=== PATIENT | male | born 1985 | race Caucasian/White ===

== ENCOUNTER 2023-05-17 14:22 | Emergency (ER) | payer MEDICAID, SELFPAY ==
[2023-05-17] VITALS (11 sets, daily range): BP systolic 113–138; BP diastolic 64–91; PULSE 78–89; RESP 14–16; TEMP 36.4–36.7; O2SAT 98; BMI 20.7
--- NOTE | 2023-05-17 15:01 | ED.RN ---
Patient brought in by for suicidal ideation. Patient states increased depression and life stressors, denies suicidal ideation at this time. Mother in hospital in [place] and is at end of life.
[2023-05-17 15:10] LABS: Bacteria 0 SEEN /hpf (None Seen); Mucous, Urine 0 SEEN /hpf (<or=2+); Red Blood Cells-Urine 0 SEEN /hpf (0-5); Squamous Epithelial Cells - UA 0 SEEN /hpf (0-5)
[2023-05-17 15:16] LABS: Color, Urine Yellow (Yellow); Glucose, Dipstick Normal (Normal); Ketone-Dipstick 5 mg/dl (Negative); Leukocyte Esterase-Dipstick 25 /ul (Negative); Nitrite-Dipstick Negative (Negative); Occult Blood-Urine Negative /ul (Negative); Protein-Dipstick 100 mg/dl (Negative); Specific Gravity, Urine 1.015 (1.002-1.030); Urine Bilirubin Dipstick Negative (Negative); Urine Clarity Clear (Clear); Urine Urobilinogen Normal (Normal); Urine pH 6.5 (5.0 - 8.0)
[2023-05-17 15:22] LABS: Absolute Lymphocyte Count 1.53 X10^3/uL (0.83-4.51); Absolute Neutrophil Count 14.9 X10^3/uL (2.0-7.7); Basophil# 0.08 X10^3/uL; Basophil% 0.5 % (0-1); Eosinophil# 0.12 X10^3/uL; Eosinophils% 0.7 % (0-5); Hemoglobin 13.9 g/dL (13.0-16.5); Lymphocyte # 1.53 X10^3/ul (0.83-4.51); Lymphocyte % 8.7 % (19-41); Mean Corp Hgb Conc 33.9 g/dL (32-36); Mean Corpuscular Hgb 32.7 pg (27.0-32.0); Mean Corpuscular Volume 96.5 fL (80-94); Mean Platelet Vol. 9.9 fl (6.2-12.0); Monocyte# 0.85 X10^3/uL; Monocyte% 4.8 % (0-10); NRBC Flagged by Analyzer 0 % (0-5); Neutrophil % 84.5 % (47-70); Platelet Count 440 K/mm3 (150-450); RBC Distribution Width CV 12.8 % (11.6-14.6); RBC Distribution Width SD 45.5 fl (35.1-43.9); Red Blood Count 4.25 M/mm3 (4.6-6.2); White Blood Count 17.6 K/mm3 (4.4-11.0)
[2023-05-17 15:25] LABS: White Blood Cells 0-5 SEEN /hpf (0-5)
[2023-05-17 15:34] LABS: Anion Gap 6 (5-15); BUN 15 mg/dL (7-18); BUN/Creat Ratio 18.3 RATIO (10-20); Calcium,Total 8.8 mg/dL (8.5-10.1); Chloride 104 mmol/L (98-107); Creatinine, Serum 0.82 mg/dL (0.70-1.30); EST Glomerular Filtration Rate 112 mL/min (>60); Est Glom Filt Rate - Afr Amer 135 mL/min (>60); Estimated Creatinine Clearance 110.18 ml/min; Glucose 150 mg/dL (74-106); Potassium 3.7 mmol/L (3.5-5.1); Sodium Level 136 mmol/L (136-145)
[2023-05-17 15:37] LABS: Amphetamine Urine VISTA NEGATIVE (<1000 ng/mL); Barbiturate Urine VISTA NEGATIVE (< 200 ng/mL); Benzodiazepine Urine VISTA NEGATIVE (< 200 ng/mL); Cocaine Urine VISTA NEGATIVE (< 300 ng/mL); Ecstacy Urine VISTA NEGATIVE (< 500 ng/mL); Methadone Urine VISTA NEGATIVE (< 300 ng/mL); PCP Urine VISTA NEGATIVE (< 25 ng/mL); THC Urine VISTA POSITIVE (< 50 ng/mL); Vista UDS pH Range 5
[2023-05-17 15:46] LABS: Alcohol, Blood (Medical)-Serum < 3.0 mg/dL
--- NOTE | 2023-05-17 16:27 | EX.ED.VIS.PS ---
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 Patient was brought in by [employer]. They were called by the family stating the patient had stated he was going to kill himself. They admitted just to the law enforcement. When they were leaving the house the patient evidently tried to grab a steak knife. He had this taken from him by law enforcement and then he stated that he wanted their guns. He admits to be under a lot of stress but does not go into details. Evidently a lot of this is related to taking care of children. He states he has probably had depression but never officially diagnosed. He has seen counselors in the past a few times but not regularly. He has never been on medications for this. He has not had any medical complaints recently. On review of systems he states he has an occasional smoker's cough but it is no different than normal. PFSH PFSH Home Medications NK 05/17/23 [History Last Taken Unknown] Allergy/AdvReac Type Severity Reaction Status Date / Time No Known Allergies Allergy Verified 05/17/23 14:22 Social History Smoking Status: Current every day smoker tobacco type: cigarettes ROS ROS ED ROS Narrative A complete review of systems was performed and is negative except as documented in the history of present illness. Some specific details below. Constitutional: No recent fevers or chills. No malaise. No known illness. EYE: No visual complaints. No hallucinations. ENT: No sore throat or nasal drainage CV: No chest pain or palpitations Respiratory: Mild occasional cough but this is chronic for him with smoking and is not different. GI: No abdominal pain. No nausea vomiting diarrhea. No blood in stool. : No frequency dysuria or hematuria. Musculoskeletal: No recent trauma. No pains. No swelling. Skin: No rash. Nondiaphoretic. Neuro: No weakness or numbness. Endocrine: No polyuria or polydipsia. EXAM Physical Exam Narrative Exam Narrative: CONSTITUTIONAL: Patient is nontoxic in appearance. Patient is curled up on the bed covered in blanket. But he pulls us over his head to speak. HEENT: No notable trauma. Mucous membranes moist. EYES: No conjunctival injection. No proptosis. No icterus NECK:No JVD. No stridor. CARDIOVASCULAR: Regular rate. Regular rhythm. No notable murmur. No JVD. RESPIRATORY: No respiratory distress. Breathing is unlabored. No wheezes are heard. No rhonchi. No rales. No pain with a deep breath. No chest wall tenderness. GASTROINTESTINAL: Not distended. Bowel sounds are normal. No tenderness. No guarding. No rebound. No palpable mass. No bruit is heard. GENITOURINARY: No tenderness over the bladder. No CVA tenderness. MUSCULOSKELETAL: Atraumatic. No peripheral edema. NEUROLOGICAL: Patient is alert and appropriate. No focal deficit noted. SKIN: No noted rashes. No diaphoresis. PSYCHIATRIC: Patient is calm. He does have a very flat affect. Makes poor eye contact. His very quiet speech. Const Vital Signs: 05/17/23 14:22 05/17/23 15:22 05/17/23 16:22 Temperature 97.6 F L Temperature Source Temporal Pulse Rate 78 88 88 Respiratory Rate 16 Blood Pressure 138/91 H Blood Pressure Mean 106 Pulse Ox 98 Oxygen Delivery Method Room Air 05/17/23 17:22 05/17/23 18:22 05/17/23 19:22 Temperature Temperature Source Pulse Rate 89 88 88 Respiratory Rate Blood Pressure Blood Pressure Mean Pulse Ox Oxygen Delivery Method 05/17/23 19:25 05/17/23 19:55 05/17/23 21:06 Temperature 98.1 F Temperature Source Oral Pulse Rate 89 89 89 Respiratory Rate 14 16 16 Blood Pressure 113/64 Blood Pressure Mean 80 Pulse Ox 98 98 Oxygen Delivery Method Room Air Room Air MDM MDM MDM Narrative Medical decision making narrative: Patient seen EC shows elevation white count at 17.6 but normal platelets and hemoglobin. This could even be from demargination from stress and fighting with lawn for cement today. He has no clinical indication of infection. He has no fevers. He has no complaints related to infectious etiology. Patient's electrolytes show no marked abnormalities. Patient's glucose is minimally up at 150. This could also be due to stress. This does not need acute treat. Patient's serum ethanol is negative. Patient's urine allergy he is Pont for can adenoids only. Patient is medically cleared for psychiatric evaluation and admission if needed. One of the facilities evaluating the patient wanted EKG. This was done. He is still medically cleared for evaluation and transfer. Crisis is evaluated the patient and feels he does need inpatient care. Considering he attempted to grab a knife and a gun while police were there and is under stress and has children at home I feel this is appropriate Lab Data Attestation: I reviewed the patient's lab results. Labs: Laboratory Results - last 24 hr 05/17/23 05/17/23 14:56 15:05 WBC 17.6 H RBC 4.25 L Hgb 13.9 Hct 41.0 MCV 96.5 H MCH 32.7 H MCHC 33.9 RDW Std Deviation 45.5 H RDW Coeff of Charisma 12.8 Plt Count 440 MPV 9.9 Immature Gran % (Auto) 0.800 Neut % (Auto) 84.5 H Lymph % (Auto) 8.7 L Wilcox % (Auto) 4.8 Eos % (Auto) 0.7 Baso % (Auto) 0.5 Absolute Neuts (auto) 14.9 H Absolute Lymphs (auto) 1.53 Nucleated RBC % 0 Sodium 136 Potassium 3.7 Chloride 104 Carbon Dioxide 26.0 Anion Gap 6 BUN 15 Creatinine 0.82 Estim Creat Clear Calc 110.18 Est GFR (MDRD) Af Amer 135 Est GFR (MDRD) Non-Af 112 BUN/Creatinine Ratio 18.3 Glucose 150 H Calcium 8.8 Urine Color Yellow Urine Clarity Clear Urine pH 6.5 Ur Specific [place] 1.015 Urine Protein 100 H Urine Glucose (UA) Normal Urine Ketones 5 H Urine Occult Blood Negative Urine Nitrite Negative Urine Bilirubin Negative Urine Urobilinogen Normal Ur Leukocyte Esterase 25 H Urine RBC 0 SEEN Urine WBC 0-5 SEEN Ur Squamous Epith Cells 0 SEEN Urine Bacteria 0 SEEN Urine Mucus 0 SEEN Urine Opiates Screen NEGATIVE Urine Methadone Screen NEGATIVE Ur Barbiturates Screen NEGATIVE Ur Phencyclidine Scrn NEGATIVE Ur Amphetamines Screen NEGATIVE MDMA (Ecstasy) Screen NEGATIVE U Benzodiazepines Scrn NEGATIVE Urine Cocaine Screen NEGATIVE U Cannabinoids Screen POSITIVE H Ur Drug Screen Comment Ethyl Alcohol < 3.0 EKG Initial EKG: Comments: My independent independent interpretation of the patient's EKG shows sinus rhythm with overall rate of 72. No ectopy. No acute ST elevation or depression. NE interval, QRS duration and QTc are normal Discharge Plan Triage Chief Complaint: Mental Health ED Provider: Jose Landry Dx/Rx/DC Orders Clinical Impression: Suicidal ideation, History of depression Prescriptions: No Action NK Primary Care Provider: Dariel Ramos Referrals: Dariel Ramos MD [Primary Care Provider] - Disposition Disposition: Psychiatric Hospital or Unit
[2023-05-18] VITALS (8 sets, daily range): BP systolic 115–128; BP diastolic 76–78; PULSE 64–89; RESP 14–18; O2SAT 98
--- NOTE | 2023-05-18 00:27 | EKG12_ITS ---
Test Reason : [facility] Blood Pressure : / mmHG Vent. Rate : 072 BPM Atrial Rate : 072 BPM P-R Int : 136 ms QRS Dur : 076 ms QT Int : 360 ms P-R-T Axes : 055 075 066 degrees QTc Int : 394 ms Normal sinus rhythm Normal ECG Confirmed by EILEEN HERNANDEZ, CONRAD ([id number]), online content editor ZEENAT KAYE ([id number]) on 05/28/2023 9:59:44 AM Referred By: [place] Confirmed By:CONRAD ARELLANO MD
--- NOTE | 2023-05-18 00:37 | NURSING ---
NO OLD EKG
--- NOTE | 2023-05-18 00:44 | NURSING ---
[facility] called nurse to nurse report given to Derek WHEELER.
--- NOTE | 2023-05-18 00:47 | NURSING ---
[facility] CALLED ETA AT 0900
== END 2023-05-18 09:11 ==
PROVIDERS: Emergency Provider Emergency Medicine; Visit Provider Emergency Medicine
DX: R45.851 Suicidal ideations (principal); F17.210 Nicotine dependence, cigarettes, uncomplicated
CPT/HCPCS: 80048; 80307; 81001; 82077; 85025; 87811; 93005; 99285

== ENCOUNTER 2023-08-14 10:30 | Emergency (ER) | payer MEDICAID, SELFPAY ==
[2023-08-14 10:31] VITALS: BP 150/97; PULSE 128; RESP 24; TEMP 36.6; O2SAT 99; BMI 24.0
--- NOTE | 2023-08-14 10:35 | CT_ITS ---
STUDY: CT BRAIN WITHOUT CONTRAST REASON FOR EXAM: Male, 38 years old. Seizure, altered MS RADIATION DOSAGE (If Supplied By Facility): CTDIvol = ( 44.99 ) mGy, DLP = ( 846.73 ) mGycm TECHNIQUE: Transaxial CT imaging of the brain was performed without administration of intravenous contrast material. Individualized dose optimization techniques were used for this CT. COMPARISON: No relevant priors. FINDINGS: Normal soft tissue structures. Normal calvarium. Normal size ventricles and extra-axial spaces for the patient''s age. Normal white matter tracts of the cerebral hemispheres. Normal basal ganglia and thalami. Normal brainstem. Normal cerebellum. There is no intracranial hemorrhage. There are no findings of an acute ischemic infarction. Normal visualized paranasal sinuses. CT/Brain/Head without Contrast IMPRESSION: Normal unenhanced CT scan of the brain. Electronically Signed: Dakota Stack MD at 11:45 EST ,
--- NOTE | 2023-08-14 10:37 | EDS_ITS ---
HPI History of Present Illness Chief Complaint: Seizure Informant: family (sister) and other ([facility] physician who helped bring pt to ER and witnessed sz) Onset/Context/Timing Onset: Today (JPTA) Context: Sudden Onset Timing: Continuous Quality: seizure Location: Full-body tonic-clonic Narrative Narrative: 38-year-old male with a longstanding history of alcohol abuse was in the intensive care unit here at the hospital visiting his mother who is admitted there for pulmonary fibrosis when he suddenly had a seizure and collapsed to the floor there in the ICU. Most of the history is provided by the sister who states he was definitely drinking alcohol last night, and states that he was mentating well at his baseline this morning and was very emotional while meeting with his mom in the ICU but was otherwise doing well physically. No recent illness. No known history of seizures. [facility] Medical History Anxiety Drug abuse ETOH abuse Marijuana abuse Home Medications NK 05/17/23 [History Last Taken Unknown] Allergy/AdvReac Type Severity Reaction Status Date / Time No Known Allergies Allergy Verified 08/14/23 10:37 Social History Smoking Status: Current every day smoker tobacco type: cigarettes EXAM Physical Exam Const Vital Signs: 08/14/23 10:31 08/14/23 11:55 08/14/23 12:16 Temperature 97.9 F Temperature Source Temporal Pulse Rate 128 H 101 H 93 Respiratory Rate 24 H 18 14 Blood Pressure 150/97 H 123/77 H 125/83 H Blood Pressure Mean 114 92 97 Pulse Ox 99 95 97 Oxygen Delivery Method Room Air Room Air Positive well nourished and well developed General Appearance ED: well developed HEENT Reports moist mucous membranes normocephalic and atraumatic Eyes PERRL and EOMs intact bilaterally Neck full ROM and supple Resp normal respiratory effort and clear to auscultation bilaterally Cardio regular rate, regular rhythm and no murmurs Rate: tachycardic GI non-tender and non-distended Auscultation: normoactive bowel sounds Palpation: soft Back/Spine no CVA tenderness General Back: other FROM Extremity normal to inspection Extremity Narrative: No signs of injury General Extremety ED: Negative for edema or pulses abnormal General Extremity: Negative for edema or pulses abnormal Neuro Neuro Narrative: Patient can open his eyes to voice, has high tone in all 4 extremities, is tremulous but not actively seizing, and attempting to fight nursing as they are trying to put an IV in him, but not verbal, not following commands. Joyce Coma Scale: document GCS findings To Voice Localizes to Pain None 9 Skin no rashes or lesions noted and no wounds MDM MDM MDM Narrative Medical decision making narrative: Given that the patient appears to be altered, tremulous and probably not seizing since he opens his eyes to voice but will not follow other commands, and is fighting our attempts to provide care, lorazepam 2 mg IV was given to help him relax and prevent further seizure activity. This, along with IV fluids while we obtain some testing. CT of the head was obtained in order to rule out intracranial injury/bleed, I reviewed the images and report which I agree with, negative for anything acute. The rest of the labs are consistent with the patient having had a seizure, with a mild lactic acidosis and mild leukocytosis without left shift. Everything is inconsistent with AKA, but his alcohol level is 0, making all of this consistent with an alcohol withdrawal seizure. On reevaluation clinically he is doing very well. He is keenly alert, conversing on the phone, able answer questions, alert and oriented x 3, and appears to have capacity to make decisions for himself. I offered admission for detox which we do here, he does not want this. He states outpatient resources he would be happy to take and consider at a later date but he lives in [place], [place]. I am going to have social work give him what ever we can and allow him to go home. I gave him as much information as I could about the fact that he probably had an alcohol withdrawal seizure but does not appear to have delirium tremens right now and is doing well clinically with normal vital signs and a normal exam and no confusion. Sister agrees. He does admit feeling withdrawal symptoms sometimes in the mornings when he has not drank all night. That was not the case today before having the seizure. Lab Data Attestation: I reviewed the patient's lab results. Labs: Laboratory Results - last 24 hr 08/14/23 08/14/23 08/14/23 10:40 10:49 12:18 WBC 12.5 H RBC 4.20 L Hgb 13.5 Hct 40.7 MCV 96.9 H MCH 32.1 H MCHC 33.2 RDW Std Deviation 47.4 H RDW Coeff of Charisma 13.2 Plt Count 546 H MPV 9.2 Immature Gran % (Auto) 3.500 H Neut % (Auto) 50.9 Lymph % (Auto) 32.9 [place] % (Auto) 9.3 Eos % (Auto) 2.3 Baso % (Auto) 1.1 H Absolute Neuts (auto) 6.3 Absolute Lymphs (auto) 4.10 Nucleated RBC % 0.2 Sodium 140 Potassium 5.2 H Chloride 109 H Carbon Dioxide 23.0 Anion Gap 8 BUN 13 Creatinine 1.04 Estim Creat Clear Calc 90.04 Est GFR (MDRD) Af Amer 103 Est GFR (MDRD) Non-Af 85 BUN/Creatinine Ratio 12.5 Glucose 149 H Lactic Acid 7.4 H* Calcium 9.2 Total Bilirubin 0.50 AST 37 ALT 51 Alkaline Phosphatase 103 Total Protein 7.6 Albumin 3.9 Globulin 3.7 Albumin/Globulin Ratio 1.1 Ur Drug Screen Comment Ethyl Alcohol < 3.0 Acetone Level NEGATIVE POC Glucose 132 H ABG Data ABG results: ABG 08/14/23 11:05 Specimen Type CONSTANCE Sample Site R Radial pH 7.35 Bicarbonate Actual 23.8 Total CO2 25 Base Excess -2 O2 Saturation 76 L O2 % 21.0 ABG pCO2 42.7 ABG pO2 43 L O2 Delivery Device Room Air Vent Mode Not entered Radiography Diagnostic Testing: Clinical Impression(s) from Imaging Studies Brain CT 08/14/23 10:35 IMPRESSION: Normal unenhanced CT scan of the brain. Electronically Signed: Dakota Stack MD at 11:45 EST , Chest X-Ray 08/14/23 11:10 IMPRESSION: Normal x-ray examination of the chest. Electronically Signed: Dakota Stack MD at 11:47 EST , Rhythm Strip Rhythm Strip: Sinus Tach Rate: 120 Ectopy: None EKG Initial EKG: Attestation: I personally reviewed and interpreted this EKG as follows: Interpretation: No Acute Injury Pattern and Sinus Tachycardia (109) Prior EKG tracings: available for review Prior: Unchanged Discharge Plan Triage Chief Complaint: Seizure ED Provider: Isrrael Kingston Dx/Rx/DC Orders Clinical Impression: Alcohol abuse, Alcohol withdrawal seizure without complication Instructions: ED SEIZURE Alcohol Withdrawal Prescriptions: No Action NK Primary Care Provider: Dariel Ramos Referrals: Dariel Ramos MD [Primary Care Provider] - As soon as possible [facility] [Non-Staff] - As soon as possible (local addiction help in [place]) Disposition Disposition: Home, Self Care
[2023-08-14] MEDS: 0.9% Normal Saline (1000mL) 1,000 ML 999 ML IV (10:40)
[2023-08-14] MEDS: Lorazepam 2 MG/ML WCH Syringe IV (10:41)
[2023-08-14 10:54] LABS: Absolute Neutrophil Count 6.3 X10^3/uL (2.0-7.7); Basophil# 0.14 X10^3/uL; Basophil% 1.1 % (0-1); Eosinophil# 0.29 X10^3/uL; Eosinophils% 2.3 % (0-5); Hematocrit 40.7 % (40-54); Hemoglobin 13.5 g/dL (13.0-16.5); Lymphocyte % 32.9 % (19-41); Mean Corp Hgb Conc 33.2 g/dL (32-36); Mean Corpuscular Hgb 32.1 pg (27.0-32.0); Mean Corpuscular Volume 96.9 fL (80-94); Mean Platelet Vol. 9.2 fl (6.2-12.0); Monocyte# 1.16 X10^3/uL; Monocyte% 9.3 % (0-10); NRBC Flagged by Analyzer 0.2 % (0-5); Neutrophil # 6.33 X10^3/uL (2.7-7.7); Neutrophil % 50.9 % (47-70); Platelet Count 546 K/mm3 (150-450); RBC Distribution Width CV 13.2 % (11.6-14.6); RBC Distribution Width SD 47.4 fl (35.1-43.9); White Blood Count 12.5 K/mm3 (4.4-11.0)
[2023-08-14 11:10] LABS: Base Excess -2 mmol/L (-2 to +2); Bicarbonate 23.8 mmol/L (22-26); Mode Not entered; O2 Delivery Device Room Air; PO2 43 mmHG (75-100); SITE R Radial; SO2 76 % (95-99); Total Carbon Dioxide 25 mmol/L; pCO2 42.7 mmHg (35-45); pH 7.35 (7.35-7.45)
[2023-08-14 11:10] LABS: ALB/GLOB Ratio 1.1 RATIO (0.9-2.4); AST(SGOT) 37 U/L (15-37); Alanine Aminotransfer ALT/SGPT 51 U/L (16-61); Albumin, Serum 3.9 g/dL (3.2-5.0); Alkaline Phosphatase 103 U/L (45-117); Anion Gap 8 (5-15); BUN 13 mg/dL (7-18); BUN/Creat Ratio 12.5 RATIO (10-20); Calcium,Total 9.2 mg/dL (8.5-10.1); Chloride 109 mmol/L (98-107); Creatinine, Serum 1.04 mg/dL (0.70-1.30); EST Glomerular Filtration Rate 85 mL/min (>60); Est Glom Filt Rate - Afr Amer 103 mL/min (>60); Estimated Creatinine Clearance 90.04 ml/min; Globulin 3.7 g/dL (2.2-4.2); Glucose 149 mg/dL (74-106); Potassium 5.2 mmol/L (3.5-5.1); Protein, Total 7.6 g/dL (6.4-8.2); Sodium Level 140 mmol/L (136-145)
--- NOTE | 2023-08-14 11:10 | RAD_ITS ---
STUDY: X-RAY CHEST REASON FOR EXAM: Male, 38 years old. Altered MS . History of seizure. TECHNIQUE: Single AP portable view of the chest. COMPARISON: None. FINDINGS: EKG electrodes are seen. The lungs are clear and expanded. There is no demonstrated pleural abnormality. Normal size heart. Normal mediastinum and christiano. Normal visualized pulmonary arteries. Normal visualized aortic arch and descending thoracic aorta. Normal visualized thoracic spine. Normal visualized ribs, clavicles, and shoulders. There is no demonstrated abnormality of the visualized soft tissue structures of the upper abdomen. RAD/Chest 1 View (Portable) IMPRESSION: Normal x-ray examination of the chest. Electronically Signed: Dakota Stack MD at 11:47 EST ,
[2023-08-14 11:11] LABS: Bedside Glucose 132 mg/dL (74-106)
[2023-08-14 11:25] LABS: Lactic Acid 7.4 mmol/L (0.4-1.9)
[2023-08-14 11:37] LABS: Alcohol, Blood (Medical)-Serum < 3.0 mg/dL
[2023-08-14 11:55] VITALS: BP 123/77; PULSE 101; RESP 18; O2SAT 95
[2023-08-14 12:16] VITALS: BP 125/83; PULSE 93; RESP 14; O2SAT 97
[2023-08-14 12:25] LABS: Blood Gas Specimen Type VEN
--- OUTSIDE RECORDS SUMMARY | 2023-08-14 12:49 | XMS RPT_ITS | CCD ---
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 Name Role Phone No, Physician Primary Care Provider Unavailabl e VILA, BALDOMERO Unavailable VILA, BALDOMERO Admitting Unavailable VILA, BALDOMERO Attending Unavailable VILA, BALDOMERO Admitting Unavailable VILA, BALDOMERO Admitting Unavailable VILA, BALDOMERO Consulting Unavailable VILA, BALDOMERO Attending Unavailable VILA, BALDOMERO Admitting Unavailable VILA, BALDOMERO Attending Unavailable No, Physician Primary Care Provider Unavailabl e NO, PHYSICIAN Primary Care Unavailable WILD ROMERO Attending Unavailable NO, PHYSICIAN Primary Care Unavailable Medications Current Medications Medication Drug Class(es) Dates Sig (Normalized) Sig (Original) cefadroxil 500 mg oral capsule (1 source) Cephalosporin Antibacterial Start: 01-09-2023 End: 01-16-2023 take 1 capsule by mouth twice daily cefadroxil (DURICEF) 500 MG capsule Take 1 (one) capsule (500 mg total) by mouth 2 (two) times a day for 7 days . 14 capsule 0 01/09/2023 01/16/2023 Active doxycycline hyclate 100 mg oral capsule (2 sources) Tetracycline-class Drug Start: 05-07-2021 End: 01-17-2022 take 1 capsule by mouth twice daily doxycycline hyclate (VIBRAMYCIN) 100 MG capsule Indications: Tick bite of lower leg, left, sequela Take 1 (one) capsule (100 mg total) by mouth 2 (two) times a day for 14 days . 28 capsule 0 05/07/2021 05/21/2021 Active Multivitamin preparation (1 source) multivitamin active omeprazole 20 mg delayed release oral capsule (1 source) Proton Pump Inhibitor Start: 01-17-2022 take 1 capsule by mouth once daily omeprazole 20 mg capsule,delayed release Take 1 capsule every day by oral route for 30 days. 01/17/2022 active Problems Active Problems Problem Classification Problem Date Documented Date Episodic/Chronic Esophageal disorders (1 source) Gastroesophageal reflux disease without esophagitis; Translations: [Gastro-esophageal reflux disease without esophagitis] Onset: 01-17-2022 Resolved: 01-17-2022 Chronic Open wounds of extremities (3 sources) Laceration of index finger; Translations: [Laceration without foreign body of left index finger without damage to nail, initial encounter] Onset: 01-09-2023 01-09-2023 Episodic Other injuries and conditions due to external causes (1 source) Laceration - injury Onset: 01-08-2023 Episodic Substance-related disorders (1 source) Nicotine dependence with current use; Translations: [Nicotine dependence, unspecified, uncomplicated] Onset: 01-17-2022 Resolved: 01-17-2022 Chronic Superficial injury; contusion (1 source) Tick bite; Translations: [Insect bite (nonvenomous), left lower leg, sequela] Episodic Past or Other Problems Problem Classification Problem Date Documented Da te Episodic/Chronic Administrative/social admission (1 source) Patient new to provider; Translations: [Persons encountering health services in other specified circumstances] Onset: 01-17-2022 Resolved: 01-17-2022 Episodic Other lower respiratory disease (1 source) Chronic cough; Translations: [Chronic cough] Onset: 01-17-2022 Resolved: 01-17-2022 Episodic Other skin disorders (1 source) Lesion of skin of face Onset: 12-10-2016 Resolved: 01-17-2022 Episodic Other upper respiratory disease (1 source) Deviated nasal septum Onset: 12-10-2016 Resolved: 01-17-2022 Episodic Results Test Name Value Interpretation Reference Range Facil it Vital Signs Date Time Vital Sign Value Performing Clinician Facility 01-09-2023 17:59-0400 Body mass index (BMI) [Ratio] 20.82 kg/m2 Wild Romero DO Work Phone: [facility] 01-09-2023 17:59-0400 Body temperature 97.9 [degF] Wild Romero DO Work Phone: [facility] 01-09-2023 17:59-0400 Body weight 63.96 kg Wild Romero DO Work Phone: [facility] 01-09-2023 17:59-0400 Diastolic blood pressure 72 mm[Hg] Wild Bigony DO Work Phone: [facility] 01-09-2023 17:59-0400 Heart rate 95 /min Wild Bigony DO Work Phone: [facility] 01-09-2023 17:59-0400 Respiratory rate 16 /min Wild Bigony DO Work Phone: [facility] 01-09-2023 17:59-0400 SaO2% (BldA) [Mass fraction] 95 % Wild Bigony DO Work Phone: [facility] 01-09-2023 17:59-0400 Systolic blood pressure 119 mm[Hg] Wild Bigony DO Work Phone: [facility] 01-17-2022 01:00-0400 Body height 175.26 cm [facility] 01-17-2022 01:00-0400 Body mass index (BMI) [Ratio] 21.4 kg/m2 [facility] 01-17-2022 01:00-0400 Body surface area Derived from formula 1.79 m2 [facility] 01-17-2022 01:00-0400 Body temperature 97.4 [degF] [facility] 01-17-2022 01:00-0400 Body weight 65.77 kg [facility] 01-17-2022 01:00-0400 Diastolic blood pressure 80 mm[Hg] [facility] 01-17-2022 01:00-0400 Heart rate 86 /min [facility] 01-17-2022 01:00-0400 Respiratory rate 18 /min [facility] 01-17-2022 01:00-0400 SaO2% (BldA) [Mass fraction] 98 % [facility] 01-17-2022 01:00-0400 Systolic blood pressure 128 mm[Hg] [facility] 05-07-2021 13:33-0400 Diastolic blood pressure 85 mm[Hg] Enma Bernens PA-C Work Phone: [facility] 05-07-2021 13:33-0400 Heart rate 93 /min Enma Bernens PA-C Work Phone: [facility] 05-07-2021 13:33-0400 Respiratory rate 16 /min Enma Bernens PA-C Work Phone: [facility] 05-07-2021 13:33-0400 SaO2% (BldA) [Mass fraction] 97 % Enma Bernens PA-C Work Phone: [facility] 05-07-2021 13:33-0400 Systolic blood pressure 152 mm[Hg] Enma Bernens PA-C Work Phone: [facility] Encounters Encounter Date Encounter Type Care Provider Facility Start: 01-09-2023 End: 01-09-2023 ambulatory WILD [facility] Start: 01-09-2023 End: 01-09-2023 Office outpatient visit 15 minutes Wild Romero DO Work Phone: [facility] [place] Plan of Treatment Date Care Activity Detail Author Start: 09-20-2031 Tetanus vaccination Tetanus: Every 10yrs [facility] Start: 03-07-2023 Influenza vaccination Sequential Influenza Vaccine (#1) [facility] Start: 01-17-2022 General health panel [facility] Start: 01-17-2022 lipid panel, blood lab [facility] Start: 01-17-2022 spirometry, pre and post bronchodilation [facility] Start: 01-17-2022 XR Chest 2 Views [facility] Start: 01-17-2022 omeprazole 20 mg capsule,delayed release [facility] Start: 01-17-2022 FQHC visit new patient NEW PATIENT 30 [facility] [employer] [facility] Start: 11-14-2021 COVID-19 Vaccine (3 - Moderna series) COVID-19 Vaccine (3 - Moderna series) [facility] Start: 03-07-2021 Influenza vaccination Sequential Influenza Vaccine (#1) [facility] Start: 2003 Hepatitis C screening Hepatitis C Screening [facility] Start: 2000 HIV screening HIV Screening [facility] Start: 1997 COVID-19 Vaccine (1) COVID-19 Vaccine (1) [facility] Start: 1997 Depression screening using PHQ-9 (Patient Health Questionnaire 9) score Depression Screening (PHQ-2/9) [facility] Start: 1991 Pneumococcal Vaccine: Ped or At-Risk (1 - PCV) Pneumococcal Vaccine: Ped or At-Risk (1 - PCV) [facility] Start: 1988 History and physical examination, annual for health maintenance Wellness Visit [facility] Start: 1985 Tetanus vaccination Tetanus: Every 10yrs [facility] Immunizations Immunization Date Immunization Notes Care Provider Fa cility 09-19-2021 influenza, injectabl e, quadrivalent, contains preservative Baldomero Vila [facility] 09-19-2021 SARS-COV-2 (COVID-19 ) vaccine, mRNA, spike protein, LNP, preservative free, 100 mcg/0.5mL dose [facility] 09-19-2021 tetanus toxoid, redu evelina diphtheria toxoid, and acellular pertussis vaccine, adsorbed [facility] 06-29-2021 SARS-COV-2 (COVID-19 ) vaccine, mRNA, spike protein, LNP, preservative free, 100 mcg/0.5mL dose [facility] Payers Date Payer Category Payer Private Health Insurance [id number] 2020 Medicaid [id number] 2020 Medicaid [id number] 1985 Unknown [id number] 1985 Unknown [id number] 1985 Unknown [id number] Social History Date Type Detail Facility Start: 05-07-2021 End: 01-09-2023 Tobacco smoking status NHIS Smokes tobacco daily [facility] Start: 05-07-2021 End: 01-09-2023 Tobacco use and exposure Smokeless tobacco non-user [facility] Start: 1985 Sex Assigned At Not on file [facility] Exposure to SARS-CoV -2 (event) Not sure [facility] Start: 08-15-2021 History of Social function [facility] Start: 08-15-2021 Tobacco use panel [facility] Medical Equipment Procedure Code Equipment Code Equipment Original Text Equi pment Identifier Dates Procedure Implant ([id number]) History of Present illness Narrative 01-10-2023 Wild Romero DO - 01/10/2023 11:24 AM EDT Note Date & Type Note Facility 01-10-2023 History of Presen t illness Narrative Assessment: Laceration of left index finger without foreign body without damage to nail, initial encounter [S61.211A] Diagnoses and all orders for this visit: Laceration of left index finger without foreign body without damage to nail, initial encounter Other orders - cefadroxil (DURICEF) 500 MG capsule; Take 1 (one) capsule (500 mg total) by mouth 2 (two) times a day for 7 days . Plan: Unable to suture due to length of time. Steristrips placed. Oral antibiotics to cover since open for 24 hours. Follow up if needed Patient informed of diagnosis, treatment and plan. Patient voiced understanding. Subjective: Patient ID: Beau Pederson is a 37 y.o. male. Chief Complaint: Injury ( frozen burgers and slipped with a pair of tongs and cut his left hand base of index finger) Injury The incident occurred 12 to 24 hours ago. The incident occurred at home. The injury mechanism was a cut/puncture wound. Context: cooking. No protective equipment was used. There is an injury to the Left index finger. He is experiencing no pain. It is unlikely that a foreign body is present. Pertinent negatives include no coughing. There have been no prior injuries to these areas. History reviewed. No pertinent past medical history. History reviewed. No pertinent surgical history. No family history on file. Review of Systems Constitutional: Negative for chills, fatigue and fever. Respiratory: Negative for cough and choking. Musculoskeletal: Negative for arthralgias and myalgias. Skin: Positive for wound. Negative for rash. Objective: BP 119/72 Pulse 95 Temp 97.9 F (36.6 C) Resp 16 Wt 64 kg (141 lb) SpO2 95% BMI 20.82 kg/m Physical Exam Vitals and nursing note reviewed. Constitutional: Appearance: Normal appearance. Skin: General: Skin is warm and dry. Capillary Refill: Capillary refill takes less than 2 seconds. Comments: Approx 1 cm laceration at MCP on palm side of index finger of left hand. Lesion is dry Neurological: Mental Status: He is alert and oriented to person, place, and time. documented in this encounter [facility] History of Present illness Narrative 05-07-2021 Enma Sim PA-C - 05/07/2021 4:50 PM EDT Note Date & Type Note Facility 05-07-2021 History of Presen t illness Narrative PATIENT NAME: Beau Pederson [facility] [address] [facility] [place] [address] : 1985 DATE OF VISIT: 05/07/2021 #: [id number] PROVIDER: Enma Sim PA-C Chief Complaint Patient presents with Insect Bite left thigh - tick bite, friday am - area is red and slightly warm to touch SUBJECTIVE 36 y.o. male presents Insect Bite (left thigh - tick bite, friday am - area is red and slightly warm to touch) HPI Tick bite to left thigh, was attached at least overnight. Beau removed tick. Denies fever, chills or malaise. Reports redness, swelling and warmth to site. Denies otc meds. MEDICAL ISSUES History reviewed. No pertinent past medical history. There is no problem list on file for this patient. SOCIAL HISTORY Social History Socioeconomic History Marital status: Spouse name: Not on file Number of children: Not on file Years of education: Not on file Highest education level: Not on file Occupational History Not on file Tobacco Use Smoking status: Current Every Day Smoker Smokeless tobacco: Never Used Substance and Sexual Activity Alcohol use: Not on file Drug use: Not on file Sexual activity: Not on file Other Topics Concern Not on file Social History Narrative Not on file Social Determinants of Health Financial Resource Strain: Difficulty of Paying Living Expenses: Not on file Food Insecurity: Worried About Running Out of Food in the Last Year: Not on file Ran Out of Food in the Last Year: Not on file Transportation Needs: Lack of Transportation (Medical): Not on file Lack of Transportation (Non-Medical): Not on file Physical Activity: Days of Exercise per Week: Not on file Minutes of Exercise per Session: Not on file Stress: Feeling of Stress : Not on file Social Connections: Frequency of Communication with Friends and Family: Not on file Frequency of Social Gatherings with Friends and Family: Not on file Attends Advent Services: Not on file Active Member of Clubs or Organizations: Not on file Attends Club or Organization Meetings: Not on file Marital Status: Not on file Housing Stability: Unable to Pay for Housing in the Last Year: Not on file Number of Places Lived in the Last Year: Not on file Unstable Housing in the Last Year: Not on file FAMILY HISTORY History reviewed. No pertinent family history. REVIEW OF SYSTEMS Review of Systems Constitutional: Negative for appetite change, chills and fever. HENT: Negative for congestion, ear pain, postnasal drip, rhinorrhea, sinus pain, sneezing, sore throat and trouble swallowing. Respiratory: Negative for cough, shortness of breath and wheezing. Cardiovascular: Negative for chest pain. Gastrointestinal: Negative for abdominal pain, diarrhea, nausea and vomiting. Musculoskeletal: Negative for arthralgias, myalgias and neck pain. Skin: Negative for rash. Tick bite left leg Neurological: Negative for headaches. MEDICATIONS PRIOR TO VISIT No current outpatient medications on file prior to visit. No current facility-administered medications on file prior to visit. ALLERGIES/INTOLERANCES No Known Allergies OBJECTIVE BP (!) 152/85 Pulse 93 Resp 16 SpO2 97% Physical Exam Vitals and nursing note reviewed. Constitutional: Appearance: He is well-developed. HENT: Head: Normocephalic and atraumatic. Eyes: Conjunctiva/sclera: Conjunctivae normal. Pupils: Pupils are equal, round, and reactive to light. Pulmonary: Effort: Pulmonary effort is normal. Musculoskeletal: Cervical back: Normal range of motion. Skin: General: Skin is warm and dry. Comments: Left anterior distal thigh with insect bite, round raised erythematous lesion with tenderness to palp Neurological: Mental Status: He is alert and oriented to person, place, and time. Psychiatric: Behavior: Behavior normal. PROCEDURE Procedures Results No results found for this or any previous visit (from the past 168 hour(s)). ASSESSMENT/PLAN (expressed as patient instructions): 1. Tick bite of lower leg, left, sequela doxycycline hyclate (VIBRAMYCIN) 100 MG capsule No follow-ups on file. MDM Section Follow up with Primary Care Provider as needed ORDERS PLACED THIS VISIT No orders of the defined types were placed in this encounter. MEDICATION LIST AT END OF VISIT Current Outpatient Medications Medication Sig Dispense Refill doxycycline hyclate (VIBRAMYCIN) 100 MG capsule Take 1 (one) capsule (100 mg total) by mouth 2 (two) times a day for 14 days . 28 capsule 0 No current facility-administered medications for this visit. documented in this encounter [facility] Evaluation note Note Date & Type Note Facility documented in this encounter [facility] Evaluation note Note Date & Type Note Facility Evaluation note No assessment recorded. 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 Classifier Operator Expl anation Advance Directives and Livin g Will 05/07/2021 1:00 PM Family History No Family History Records Found Relationship Description Onset Age of this Age Resolved Age Notes Mother Family history of cardiac disorder Family history of cardiac disorder; Members: Mother Father Family history of diabetes mellitus Family history of diabetes mellitus; Members: Father Father Family history of cardiac disorder Family history of cardiac disorder; Members: Father Mother Family history of cancer breast Mother Parkinson's disease Father Family history of cancer brain Summary Purpose Additional Source Comments Reason for Visit (unrecogniz ed section and content) Reason Comments Injury frozen bu rgers and slipped with a pair of tongs and cut his left hand base of index finger Care Teams (unrecognized sec tion and content) Vinyl Cutter Relationship Specialty Start Date End Date No, Physician [facility] PCP - General 05/07/21 (unrecognized sect ion and content) No Status Records FoundNo Status Records FoundNo Status Records FoundNo Status Records Found INFORMATION SOURCE (unrecogn ized section and content) DATE CREATED AUTHOR AUTHOR'S ORGANIZ ATION 04/13/2022 [facility] DATE CREATED AUTHOR AUTHOR'S ORGANIZ ATION 01/10/2023 [facility] DATE CREATED AUTHOR AUTHOR'S ORGANIZ ATION 01/10/2023 [facility] FOR RECORDS PERTAINING TO PATIENTS WHO ARE OR HAVE BEEN ENROLLED IN A CHEMICAL DEPENDENCY/SUBSTANCEABUSE PROGRAM, SOME INFORMATION MAY BE OMITTED. This clinical summary was aggregated from multiple sources. Caution should be exercised in using it in the provision of clinical care. This summary normalizes information from multiple sources, and as a consequence, information in this document may materially change the coding, format and clinical context of patient data. In addition, data may be omitted in some cases. CLINICAL DECISIONS SHOULD BE BASED ON THE PRIMARY CLINICAL RECORDS. [facility]. provides no warranty or guarantee of the accuracy or completeness of information in this document.
[2023-08-14 12:51] LABS: Amphetamine Urine VISTA NEGATIVE (<1000 ng/mL); Barbiturate Urine VISTA NEGATIVE (< 200 ng/mL); Benzodiazepine Urine VISTA NEGATIVE (< 200 ng/mL); Cocaine Urine VISTA NEGATIVE (< 300 ng/mL); Ecstacy Urine VISTA NEGATIVE (< 500 ng/mL); Methadone Urine VISTA NEGATIVE (< 300 ng/mL); PCP Urine VISTA NEGATIVE (< 25 ng/mL); THC Urine VISTA POSITIVE (< 50 ng/mL); Vista UDS pH Range 7
[2023-08-14 13:00] VITALS: PULSE 92; RESP 17; O2SAT 97
--- NOTE | 2023-08-14 13:21 | ED.RN ---
MICHAEL García/ RAMOS AWARE OF PT NEEDS FOR ALCOHOL DEPENDANCY RESOURCES.
[2023-08-14 14:00] VITALS: PULSE 87; RESP 14
[2023-08-14 14:49] LABS: Reflex Lactate? Y
--- NOTE | 2023-08-14 17:10 | CM.ED ---
Emergency Department Social Work Sw met with patient at bedside. Also present was patient's sister, Emelia. Sw asked patient if ok to discuss concerns and resources with visitor present, patient said yes. Patient states that he has been struggling with drinking too much, and just recently started opening up and asking for help. Patient reports that he was at hospital visiting his mother for the first time in a long time, and he is realizing that she will not improve, which prompted him to drink. Sw informed patient of detox and RAMP services that are available to him at [facility]. Patient denied admission, and states that he has to return home because his and children are there. Patient states that when he is discharged he plans to return to ICU to say good bye to his mom and then plans to return home. Sw asked who patient resides with, he states his . Patient reports that his is supportive, and will be helping him get connected to substance use resources. Sw provided patient with list of substance use resources/ detox centers in [place], [place]. Patient appreciative of resources provided. Patient is cleared and discharge is ready. Patient discharged to home with resources provided. No additional needs at this time. Clau Leslie, CUSTOMER CARE REPRESENTATIVE, TRUST CLERK
== END 2023-08-14 14:24 | disposition home or self-care (01) ==
PROVIDERS: Emergency Provider Emergency Medicine; Visit Provider Emergency Medicine
DX: F10.139 Alcohol abuse with withdrawal, unspecified (principal); R56.9 Unspecified convulsions; F17.210 Nicotine dependence, cigarettes, uncomplicated
CPT/HCPCS: 82803; 36600; 70450; 71045; 80053; 80307; 80320; 82009; 82962; 83605; 85025; 93005; 96374; 99284; J7030; A4216; G0480